=== PATIENT | male | born 1995 | race Caucasian/White ===

== ENCOUNTER 2018-08-04 01:05 | Emergency (ER) | payer MEDICAID ==
[~2018-08-04] VITALS: Ht 162.6 cm; Wt 75.7 kg
[2018-08-04] MEDS ORDERED: KETOROLAC 30MG/ML VIAL IM ONE (04:00)
[2018-08-04 05:33] LABS: CLARITY URINE CLEAR (CLEAR); COLOR URINE YELLOW (YELLOW); KETONES URINE NEGATIVE (NEGATIVE); LEUKOCYTE ESTERASE URINE NEGATIVE (NEGATIVE); NITRITE URINE NEGATIVE (NEGATIVE); OCCULT BLOOD URINE NEGATIVE (NEGATIVE); PH URINE 5.5 (4.5-8.0); PROTEIN URINE NEGATIVE (NEGATIVE); SPECIFIC GRAVITY URINE 1.017 (1.005-1.030); UROBILINOGEN URINE 0.2 E.U./dL (0.2-1.0)
[2018-08-04 06:33] VITALS: BP 122/64
== END 2018-08-04 06:36 | disposition home or self-care (01) ==
LOC: ER 01:05
DX: R10.9 Unspecified abdominal pain (principal); F12.10 Cannabis abuse, uncomplicated; F14.10 Cocaine abuse, uncomplicated; F32.9 Major depressive disorder, single episode, unspecified; F17.200 Nicotine dependence, unspecified, uncomplicated
CPT/HCPCS: 76770; 81003; 96372; 99284; J1885